=== PATIENT | female | born 1980 ===

== ENCOUNTER 2017-07-13 14:27 | Inpatient (IN) | payer OTHER ==
[~2017-07-13] VITALS: Ht 162.6 cm; Wt 70.3 kg
[2017-07-20] MEDS ORDERED: COLACE100 MG PO (15:06)
[2017-07-20] MEDS ORDERED: PERCOCET 5-3251 EACH PO (15:06)
== END 2017-07-20 15:24 | DRG 743 ==
LOC: OB/GYN 07-17 05:50 → O/R 07-17 05:50 → SURH 07-17 07:00 → OB/GYN 07-17 12:55 → SURH 07-17 14:24 → OB/GYN 07-20 15:24
PROVIDERS: Specialist
PROC: 0UT77ZZ Resection of Bilateral Fallopian Tubes, Via Natural or Artificial Opening (ICD-10-PCS; 2017-07-17)
PROC: 0JQC0ZZ Repair Pelvic Region Subcutaneous Tissue and Fascia, Open Approach (ICD-10-PCS; 2017-07-17)
PROC: 0JQC0ZZ Repair Pelvic Region Subcutaneous Tissue and Fascia, Open Approach (ICD-10-PCS; 2017-07-17)
PROC: 0UT97ZZ Resection of Uterus, Via Natural or Artificial Opening (ICD-10-PCS; principal; 2017-07-17 07:00)
DX: N81.3 Complete uterovaginal prolapse (principal); N72 Inflammatory disease of cervix uteri